=== PATIENT | female | born 1975 | race Asian ===

== ENCOUNTER 2021-06-05 07:42 | Inpatient (IN) | payer MEDICARE ==
[2021-06-05 16:07] LABS: Basophils # (Auto) 0.1 K/mm3 (0.0-0.1); Basophils % (Auto) 1.4 % (0.0-1.8); Eosinophils # (Auto) 0.9 K/mm3 (0.0-0.4); Eosinophils % (Auto) 11.3 % (0.0-4.3); Hematocrit 39.3 % (30.3-42.9); Lymphocytes # (Auto) 2.2 K/mm3 (1.2-5.4); Lymphocytes % (Auto) 27.7 % (13.4-35.0); Mean Corpuscular HGB Conc 33 % (30-34); Mean Corpuscular Volume 82 fl (79-97); Monocytes # (Auto) 0.4 K/mm3 (0.0-0.8); Monocytes % (Auto) 5.1 % (0.0-7.3); Platelet Count 250 K/mm3 (140-440); Red Blood Count 4.82 M/mm3 (3.65-5.03); Red Cell Distribution Width 15.4 % (13.2-15.2)
[2021-06-05 16:33] LABS: Alanine Aminotransferase 13 units/L (7-56); Albumin 4.4 g/dL (3.9-5); BUN/Creatinine Ratio 11; Blood Urea Nitrogen 9 mg/dL (7-17); Calcium 10.6 mg/dL (8.4-10.2); Chol/HDL Ratio 2.94 %; HDL Cholesterol 59 mg/dL (40-59); Hemolysis Index 63; LDL Cholesterol,Direct 110 mg/dL (50-130)
--- NOTE | 2021-06-06 10:13 | History and Physical Report ---
GP History & Physical - History of Present Illness Date of admission: 06/05/21 Date of Examination: 06/06/21 Reason for Admission: Failure of Outpatient Treatment History of Present Illness: Per Admission Note: Still hearing voices telling her to kill herself Elyssa Mae is a 45y/o female patient who was admitted for psychosis. During my evaluation of the patient she has poor insight. She is unable to give a lot of information as to her history or what's presently going on with her. The patient appears to have some developmental delay. She says she was admitted because she "needed a change, a hip pill." She says "I think things are there but not there." She says "will today be a good day for me to go home." She could not tell me any of her past diagnoses or any past medications. She initially says she hears things, then she says she doesn't. 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." She denies any illicit drug use outside of "weed." PAST PSYCHIATRIC HISTORY: Diagnoses: Schizophrenia documented Suicide attempts or Self-harm behavior: Denies Prior psychiatric hospitalizations: yes Substance Abuse history: "Michael" Previous psychiatric medications tried: could not recall Outpatient treatment: Denies PAST MEDICAL HISTORY: None reported or document Family Psychiatric History: None reported or documented SOCIAL HISTORY Marital Status: "" Living Arrangements: "with someone" 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" Access to guns/weapons: denies Education: History of Abuse: denies Legal History: denies REVIEW OF SYSTEMS Constitutional: Negative for weight loss ENT: Negative for stridor Respiratory: Negative for cough or hemoptysis All other systems reviewed and are negative MENTAL STATUS EXAMINATION General Appearance and Behavior: Age appropriate, wearing appropriate clothes, cooperative, good eye contact, calm and cooperative Cooperation: cooperative Psychomotor Behavior: Psychomotor normal Mood: okay Affect and affective range: congruent with stated mood Thought Process: impaired Thought Content: command hallucinations Speech: Normal volume, Regular rate and rhythm Suicidal Ideation: Denies Homicidal Ideation: Denies hallucination: Denies Delusions: None elicited Impulse Control: limited Insight and Judgment: Poor Memory: Poor Attention: Divided Orientation: Alert and oriented Diagnoses: Schizophrenia Treatment Plan Patient admitted for inpatient psychiatric evaluation, medication adjustment and close monitoring The patient's behavior, mood, sleep and appetite will be closely monitored. Patient enrolled in individual and group therapeutic sessions and encouraged to attend. Patient provided with a safe and structured environment. Patient's physical health needs will be addressed by the Hospitalist. Hospitalist Consulted Labs including CBC, CMP, Lipid profile and Hemoglobin A1C levels ordered for baseline reference Social Assessment will be completed and the Destination Specialist will work with patient and family to ensure a suitable and safe disposition Medication adjustment will be made as clinically indicated Start Olanzapine 5mg po daily Start Trazodone 50mg po qhs Usual Wellness Congregation/Preservation: - Start Trazodone 50 mg po QHS & 50 mg po QHS PRN between 10 PM & 2 AM for insomnia - Start Melatonin 5 mg po QHS to promote circadian rhythm The patient agreed on the treatment plan, understood the risk, benefit, alternative treatment, potential consequence of no treatment, and gave informed consent. Estimated days: 7 Post hospital care: primary care provider, psychiatric provider Case staffed with Dr. Weber Legal Status: Voluntary Reaction to Hospitalization: Accepting Medications and Allergies Allergies Allergy/AdvReac Type Severity Reaction Status Date / Time No Known Allergies Allergy Verified 06/05/21 19:48 Home Medications Medication Instructions Recorded Confirmed Last Taken Type lisinopriL [Lisinopril] 10 mg PO BID 06/05/21 06/05/21 Unknown History Results - Results Labs/Vitals: Laboratory Last Values WBC 8.1 K/mm3 (4.5-11.0) 06/05/21 15:51 RBC 4.82 M/mm3 (3.65-5.03) 06/05/21 15:51 Hgb 13.0 gm/dl (10.1-14.3) 06/05/21 15:51 Hct 39.3 % (30.3-42.9) 06/05/21 15:51 MCV 82 fl (79-97) 06/05/21 15:51 MCH 27 pg (28-32) L 06/05/21 15:51 MCHC 33 % (30-34) 06/05/21 15:51 RDW 15.4 % (13.2-15.2) H 06/05/21 15:51 Plt Count 250 K/mm3 (140-440) 06/05/21 15:51 Lymph % (Auto) 27.7 % (13.4-35.0) 06/05/21 15:51 [place] % (Auto) 5.1 % (0.0-7.3) 06/05/21 15:51 Eos % (Auto) 11.3 % (0.0-4.3) H 06/05/21 15:51 Baso % (Auto) 1.4 % (0.0-1.8) 06/05/21 15:51 Lymph # (Auto) 2.2 K/mm3 (1.2-5.4) 06/05/21 15:51 [place] # (Auto) 0.4 K/mm3 (0.0-0.8) 06/05/21 15:51 Eos # (Auto) 0.9 K/mm3 (0.0-0.4) H 06/05/21 15:51 Baso # (Auto) 0.1 K/mm3 (0.0-0.1) 06/05/21 15:51 Seg Neutrophils % 54.5 % (40.0-70.0) 06/05/21 15:51 Seg Neutrophils # 4.4 K/mm3 (1.8-7.7) 06/05/21 15:51 Sodium 136 mmol/L (137-145) L 06/05/21 15:51 Potassium 4.2 mmol/L (3.6-5.0) 06/05/21 15:51 Chloride 100.6 mmol/L (98-107) 06/05/21 15:51 Carbon Dioxide 26 mmol/L (22-30) 06/05/21 15:51 Anion Gap 14 mmol/L 06/05/21 15:51 BUN 9 mg/dL (7-17) 06/05/21 15:51 Creatinine 0.8 mg/dL (0.6-1.2) 06/05/21 15:51 Estimated GFR > 60 ml/min 06/05/21 15:51 BUN/Creatinine Ratio 11 % 06/05/21 15:51 Glucose 95 mg/dL (65-100) 06/05/21 15:51 POC Glucose 91 mg/dL (70-105) 06/06/21 07:20 Hemoglobin A1c 6.1 % (4-6) H 06/05/21 15:51 Calcium 10.6 mg/dL (8.4-10.2) H 06/05/21 15:51 Total Bilirubin 0.20 mg/dL (0.1-1.2) 06/05/21 15:51 AST 20 units/L (5-40) 06/05/21 15:51 ALT 13 units/L (7-56) 06/05/21 15:51 Alkaline Phosphatase 93 units/L (35-129) 06/05/21 15:51 Total Protein 7.3 g/dL (6.3-8.2) 06/05/21 15:51 Albumin 4.4 g/dL (3.9-5) 06/05/21 15:51 Albumin/Globulin Ratio 1.5 % 06/05/21 15:51 Triglycerides 68 mg/dL (2-149) 06/05/21 15:51 Cholesterol 174 mg/dL (50-199) 06/05/21 15:51 LDL Cholesterol Direct 110 mg/dL (50-130) 06/05/21 15:51 HDL Cholesterol 59 mg/dL (40-59) 06/05/21 15:51 Cholesterol/HDL Ratio 2.94 % 06/05/21 15:51 TSH 0.899 mlU/mL (0.270-4.200) 06/05/21 15:51 Last Vital Signs Temp 98.5 F 06/05/21 22:00 Pulse 16 L 06/05/21 22:00 Resp 16 06/05/21 22:00 BP 125/69 06/05/21 22:00 Pulse Ox 100 06/05/21 22:00 Physical Examination - Constitutional Vitals: Vital Signs Temp Pulse Resp BP Pulse Ox 98.5 F 16 L 16 125/69 100 06/05/21 22:00 06/05/21 22:00 06/05/21 22:00 06/05/21 22:00 06/05/21 22:00 Temperature -Last 24 Hours Temperature 98.5 F Temperature 97.4 F Mental Status Exam - Vital signs Last Vital Signs Temp 98.5 F 06/05/21 22:00 Pulse 16 L 06/05/21 22:00 Resp 16 06/05/21 22:00 BP 125/69 06/05/21 22:00 Pulse Ox 100 06/05/21 22:00 Physician Certification - Certification Statement Physician Certification Statement: This is an acknowledgement statement that ELYSSA MAE is a 45 year old F who requires inpatient psychiatric admission for treatment which could reasonably be expected to improve the patient's condition for Estimated period of time patient will need to remain in the hospital: [ ] Plan for post-hospital care: [ ]
--- NOTE | 2021-06-06 10:32 | Consultation ---
History of Present Illness - Reason for Consult Consult date: 06/06/21 Medical Mx - History of Present Illness Shira Mae is a 45y/o female with a history of hypertension and schizophrenia who is admitted to psychiatry unit for psychosis. Patient appears to have very poor insight and unable to provide a good history. Patient currently resting in the daily activity area. Denies any chest pain short of breath or abdominal pain. She has good appetite and sleeping good. Hospitalist service has been consulted for medical management. PAST PSYCHIATRIC HISTORY: Schizophrenia PAST MEDICAL HISTORY: Hypertension Family History: None reported SOCIAL HISTORY: Admits smoking weeds REVIEW OF SYSTEMS Constitutional: no fever, no chills, no weight loss Ears, eyes, nose, mouth and throat: no nasal congestion, no nasal discharge, no sinus pressure, no vision change, no red eye. Neck: No neck pain or rigidity. Cardiovascular: No chest pain, no orthopnea, no palpitations, no leg swelling Respiratory: No shortness of breath, no cough, no congestion, no wheezing Gastrointestinal: no abdominal pain, no nausea, no vomiting Genitourinary : no dysuria, no hematuria Musculoskeletal: no joint swelling or muscle ache Integumentary: no rash, no pruritis Neurological: no parathesias, no numbness, no tingling Endocrine: no cold or heat intolerance, no polyuria or polydipsia Hematologic/Lymphatic: no easy bruising, no easy bleeding, no gland swelling Allergic/Immunologic: no urticaria, no angioedema. Physical exam: GENERAL: well-developed and well-nourished -[place] female sitting in a chair HEENT: Normocephalic. Atraumatic. No conjunctival congestion or icterus. Patient has moist mucous membranes. NECK: Supple. Trachea midline. CHEST/LUNGS: Clear to auscultated bilaterally, breathing nonlabored. No wheezes crackles or rhonchi. HEART/CARDIOVASCULAR: Regular in rate and rhythm. S1 and S2 positive. ABDOMEN: Abdomen is soft, nontender. Patient has normal bowel sounds. SKIN: There is no rash. Warm and dry. NEURO: No focal motor deficit. Follows command. MUSCULOSKELETAL: No joint effusion or tenderness. EXTRIMITY: No edema, no cyanosis or clubbing. PSYCH: Cooperative. Assessment and plan: Schizophrenia with psychosis -Treatment per primary Hypertension, BP appears to be stable, continue home dose of lisinopril DVT prophylaxis, ambulatory --Patient appears to be medically stable. Please call us back for any question or concern Medications and Allergies Allergies Allergy/AdvReac Type Severity Reaction Status Date / Time No Known Allergies Allergy Verified 06/05/21 19:48 Home Medications Medication Instructions Recorded Confirmed Last Taken Type lisinopriL [Lisinopril] 10 mg PO BID 06/05/21 06/05/21 Unknown History Active Meds: Active Medications Lisinopril (Lisinopril 10 Mg Tab) 10 mg PO BID [facility] Olanzapine (Olanzapine 5 Mg Tab) 5 mg PO QDAY [facility] Trazodone HCl (Trazodone 50 Mg Tab) 50 mg PO QHS [facility] Exam - Constitutional Vitals: Temp Pulse Resp BP Pulse Ox 98.5 F 16 L 16 125/69 100 06/05/21 22:00 06/05/21 22:00 06/05/21 22:00 06/05/21 22:00 06/05/21 22:00 Results - Labs CBC & Chem 7: 06/05/21 15:51 06/05/21 15:51 Labs: Abnormal lab results 06/05/21 06/05/21 06/05/21 Range/Units 15:51 15:51 15:51 MCH 27 L (28-32) pg RDW 15.4 H (13.2-15.2) % Eos % (Auto) 11.3 H (0.0-4.3) % Eos # (Auto) 0.9 H (0.0-0.4) K/mm3 Sodium 136 L (137-145) mmol/L Hemoglobin A1c 6.1 H (4-6) % Calcium 10.6 H (8.4-10.2) mg/dL
[2021-06-06] MEDS: LISINOPRIL 10 MG TAB PO SCH ×2 (13:24→21:12)
[2021-06-06] MEDS: traZODone 50 MG TAB PO SCH (21:13)
[2021-06-07] MEDS: LISINOPRIL 10 MG TAB PO SCH ×2 (09:25→21:03)
--- NOTE | 2021-06-07 09:25 | Progress Note ---
Subjective Date of service: 06/07/21 Principal diagnosis: schizophrenia Subjective Comment: The patient was seen today. She is sitting off to herself. She has poor insight and is unable to express herself clearly. The patient replied that she's doing okay when asked. When asking her if she understood why she was admitted into the hospital, she replied "I got bored." The patient says "not really" when asked was she still having hallucinations. I tried to get the patient to explain if she continued to was hear or see things, she replied "no, not really." She denies SI/HI REVIEW OF SYSTEMS Constitutional: Negative for weight loss ENT: Negative for stridor Respiratory: Negative for cough or hemoptysis All other systems reviewed and are negative MENTAL STATUS EXAMINATION General Appearance and Behavior: Age appropriate, wearing appropriate clothes, cooperative, good eye contact, calm and cooperative Cooperation: cooperative Psychomotor Behavior: Psychomotor normal Mood: okay Affect and affective range: congruent with stated mood Thought Process: impaired Thought Content: command hallucinations Speech: Normal volume, Regular rate and rhythm Suicidal Ideation: Denies Homicidal Ideation: Denies hallucination: Auditory Delusions: None elicited Impulse Control: limited Insight and Judgment: Poor Memory: Poor Attention: Divided Orientation: Alert and oriented Diagnoses: Schizophrenia Treatment Plan Patient admitted for inpatient psychiatric evaluation, medication adjustment and close monitoring The patient's behavior, mood, sleep and appetite will be closely monitored. Patient enrolled in individual and group therapeutic sessions and encouraged to attend. Patient provided with a safe and structured environment. Patient's physical health needs will be addressed by the Hospitalist. Hospitalist Consulted Labs including CBC, CMP, Lipid profile and Hemoglobin A1C levels ordered for baseline reference Social Assessment will be completed and the Coach Tour Driver will work with patient and family to ensure a suitable and safe disposition Medication adjustment will be made as clinically indicated Increased Olanzapine 7.5mg po daily Usual Wellness Mormon/Preservation: - Start Trazodone 50 mg po QHS & 50 mg po QHS PRN between 10 PM & 2 AM for insomnia - Start Melatonin 5 mg po QHS to promote circadian rhythm The patient agreed on the treatment plan, understood the risk, benefit, alternative treatment, potential consequence of no treatment, and gave informed consent. Estimated days: 7 Post hospital care: primary care provider, psychiatric provider Case staffed with Dr. Weber Medications and Allergies Allergies Allergy/AdvReac Type Severity Reaction Status Date / Time No Known Allergies Allergy Verified 06/05/21 19:48 Home Medications Medication Instructions Recorded Confirmed Last Taken Type lisinopriL [Lisinopril] 10 mg PO BID 06/05/21 06/05/21 Unknown History Active Meds: Active Medications Lisinopril (Lisinopril 10 Mg Tab) 10 mg PO BID [facility] Last Admin: 06/06/21 21:12 Dose: Not Given Documented by: Olanzapine (Olanzapine 5 Mg Tab) 5 mg PO QDAY [facility] Last Admin: 06/06/21 13:20 Dose: 5 mg Documented by: Trazodone HCl (Trazodone 50 Mg Tab) 50 mg PO QHS [facility] Last Admin: 06/06/21 21:13 Dose: 50 mg Documented by: Results - Results Labs/Vitals: Laboratory Last Values WBC 8.1 K/mm3 (4.5-11.0) 06/05/21 15:51 RBC 4.82 M/mm3 (3.65-5.03) 06/05/21 15:51 Hgb 13.0 gm/dl (10.1-14.3) 06/05/21 15:51 Hct 39.3 % (30.3-42.9) 06/05/21 15:51 MCV 82 fl (79-97) 06/05/21 15:51 MCH 27 pg (28-32) L 06/05/21 15:51 MCHC 33 % (30-34) 06/05/21 15:51 RDW 15.4 % (13.2-15.2) H 06/05/21 15:51 Plt Count 250 K/mm3 (140-440) 06/05/21 15:51 Lymph % (Auto) 27.7 % (13.4-35.0) 06/05/21 15:51 [place] % (Auto) 5.1 % (0.0-7.3) 06/05/21 15:51 Eos % (Auto) 11.3 % (0.0-4.3) H 06/05/21 15:51 Baso % (Auto) 1.4 % (0.0-1.8) 06/05/21 15:51 Lymph # (Auto) 2.2 K/mm3 (1.2-5.4) 06/05/21 15:51 [place] # (Auto) 0.4 K/mm3 (0.0-0.8) 06/05/21 15:51 Eos # (Auto) 0.9 K/mm3 (0.0-0.4) H 06/05/21 15:51 Baso # (Auto) 0.1 K/mm3 (0.0-0.1) 06/05/21 15:51 Seg Neutrophils % 54.5 % (40.0-70.0) 06/05/21 15:51 Seg Neutrophils # 4.4 K/mm3 (1.8-7.7) 06/05/21 15:51 Sodium 136 mmol/L (137-145) L 06/05/21 15:51 Potassium 4.2 mmol/L (3.6-5.0) 06/05/21 15:51 Chloride 100.6 mmol/L (98-107) 06/05/21 15:51 Carbon Dioxide 26 mmol/L (22-30) 06/05/21 15:51 Anion Gap 14 mmol/L 06/05/21 15:51 BUN 9 mg/dL (7-17) 06/05/21 15:51 Creatinine 0.8 mg/dL (0.6-1.2) 06/05/21 15:51 Estimated GFR > 60 ml/min 06/05/21 15:51 BUN/Creatinine Ratio 11 % 06/05/21 15:51 Glucose 95 mg/dL (65-100) 06/05/21 15:51 POC Glucose 91 mg/dL (70-105) 06/06/21 07:20 Hemoglobin A1c 6.1 % (4-6) H 06/05/21 15:51 Calcium 10.6 mg/dL (8.4-10.2) H 06/05/21 15:51 Total Bilirubin 0.20 mg/dL (0.1-1.2) 06/05/21 15:51 AST 20 units/L (5-40) 06/05/21 15:51 ALT 13 units/L (7-56) 06/05/21 15:51 Alkaline Phosphatase 93 units/L (35-129) 06/05/21 15:51 Total Protein 7.3 g/dL (6.3-8.2) 06/05/21 15:51 Albumin 4.4 g/dL (3.9-5) 06/05/21 15:51 Albumin/Globulin Ratio 1.5 % 06/05/21 15:51 Triglycerides 68 mg/dL (2-149) 06/05/21 15:51 Cholesterol 174 mg/dL (50-199) 06/05/21 15:51 LDL Cholesterol Direct 110 mg/dL (50-130) 06/05/21 15:51 HDL Cholesterol 59 mg/dL (40-59) 06/05/21 15:51 Cholesterol/HDL Ratio 2.94 % 06/05/21 15:51 TSH 0.899 mlU/mL (0.270-4.200) 06/05/21 15:51 Last Vital Signs Temp 98.1 F 06/07/21 08:17 Pulse 53 L 06/07/21 08:17 Resp 18 06/07/21 08:17 BP 134/77 06/07/21 08:17 Pulse Ox 100 06/07/21 08:17
[2021-06-07] MEDS: traZODone 50 MG TAB PO SCH (21:03)
[2021-06-08] MEDS: LISINOPRIL 10 MG TAB PO SCH ×2 (09:26→21:05)
--- NOTE | 2021-06-08 12:06 | Progress Note ---
Subjective Date of service: 06/08/21 Principal diagnosis: schizophrenia Subjective Comment: The patient was seen today. She says "I feel great" when asking how she was feeling. She also says she slept "great." The patient denies SI/HI or hallucinations of any kind, although staff has observed her talking to herself. REVIEW OF SYSTEMS Constitutional: Negative for weight loss ENT: Negative for stridor Respiratory: Negative for cough or hemoptysis All other systems reviewed and are negative MENTAL STATUS EXAMINATION General Appearance and Behavior: Age appropriate, wearing appropriate clothes, cooperative, good eye contact, calm and cooperative Cooperation: cooperative Psychomotor Behavior: Psychomotor normal Mood: okay Affect and affective range: congruent with stated mood Thought Process: impaired Thought Content: command hallucinations Speech: Normal volume, Regular rate and rhythm Suicidal Ideation: Denies Homicidal Ideation: Denies hallucination: Auditory Delusions: None elicited Impulse Control: limited Insight and Judgment: Poor Memory: Poor Attention: Divided Orientation: Alert and oriented Diagnoses: Schizophrenia Treatment Plan Patient admitted for inpatient psychiatric evaluation, medication adjustment and close monitoring The patient's behavior, mood, sleep and appetite will be closely monitored. Patient enrolled in individual and group therapeutic sessions and encouraged to attend. Patient provided with a safe and structured environment. Patient's physical health needs will be addressed by the Hospitalist. Hospitalist Consulted Labs including CBC, CMP, Lipid profile and Hemoglobin A1C levels ordered for baseline reference Social Assessment will be completed and the Supervisor Pre Wave will work with patient and family to ensure a suitable and safe disposition Medication adjustment will be made as clinically indicated Increased Olanzapine 10mg po daily Usual Wellness Episcopal/Preservation: - Start Trazodone 50 mg po QHS & 50 mg po QHS PRN between 10 PM & 2 AM for insomnia - Start Melatonin 5 mg po QHS to promote circadian rhythm The patient agreed on the treatment plan, understood the risk, benefit, alte rnative treatment, potential consequence of no treatment, and gave informed consent. Estimated days: 7 Post hospital care: primary care provider, psychiatric provider Case staffed with Dr. Weber Medications and Allergies Allergies Allergy/AdvReac Type Severity Reaction Status Date / Time No Known Allergies Allergy Verified 06/05/21 19:48 Home Medications Medication Instructions Recorded Confirmed Last Taken Type lisinopriL [Lisinopril] 10 mg PO BID 06/05/21 06/05/21 Unknown History Active Meds: Active Medications Lisinopril (Lisinopril 10 Mg Tab) 10 mg PO BID [facility] Last Admin: 06/08/21 09:26 Dose: 10 mg Documented by: Olanzapine (Olanzapine 7.5 Mg Tab) 7.5 mg PO QDAY [facility] Last Admin: 06/08/21 09:26 Dose: 7.5 mg Documented by: Trazodone HCl (Trazodone 50 Mg Tab) 50 mg PO QHS [facility] Last Admin: 06/07/21 21:03 Dose: 50 mg Documented by: Results - Results Labs/Vitals: Laboratory Last Values WBC 8.1 K/mm3 (4.5-11.0) 06/05/21 15:51 RBC 4.82 M/mm3 (3.65-5.03) 06/05/21 15:51 Hgb 13.0 gm/dl (10.1-14.3) 06/05/21 15:51 Hct 39.3 % (30.3-42.9) 06/05/21 15:51 MCV 82 fl (79-97) 06/05/21 15:51 MCH 27 pg (28-32) L 06/05/21 15:51 MCHC 33 % (30-34) 06/05/21 15:51 RDW 15.4 % (13.2-15.2) H 06/05/21 15:51 Plt Count 250 K/mm3 (140-440) 06/05/21 15:51 Lymph % (Auto) 27.7 % (13.4-35.0) 06/05/21 15:51 [place] % (Auto) 5.1 % (0.0-7.3) 06/05/21 15:51 Eos % (Auto) 11.3 % (0.0-4.3) H 06/05/21 15:51 Baso % (Auto) 1.4 % (0.0-1.8) 06/05/21 15:51 Lymph # (Auto) 2.2 K/mm3 (1.2-5.4) 06/05/21 15:51 [place] # (Auto) 0.4 K/mm3 (0.0-0.8) 06/05/21 15:51 Eos # (Auto) 0.9 K/mm3 (0.0-0.4) H 06/05/21 15:51 Baso # (Auto) 0.1 K/mm3 (0.0-0.1) 06/05/21 15:51 Seg Neutrophils % 54.5 % (40.0-70.0) 06/05/21 15:51 Seg Neutrophils # 4.4 K/mm3 (1.8-7.7) 06/05/21 15:51 Sodium 136 mmol/L (137-145) L 06/05/21 15:51 Potassium 4.2 mmol/L (3.6-5.0) 06/05/21 15:51 Chloride 100.6 mmol/L (98-107) 06/05/21 15:51 Carbon Dioxide 26 mmol/L (22-30) 06/05/21 15:51 Anion Gap 14 mmol/L 06/05/21 15:51 BUN 9 mg/dL (7-17) 06/05/21 15:51 Creatinine 0.8 mg/dL (0.6-1.2) 06/05/21 15:51 Estimated GFR > 60 ml/min 06/05/21 15:51 BUN/Creatinine Ratio 11 % 06/05/21 15:51 Glucose 95 mg/dL (65-100) 06/05/21 15:51 POC Glucose 91 mg/dL (70-105) 06/06/21 07:20 Hemoglobin A1c 6.1 % (4-6) H 06/05/21 15:51 Calcium 10.6 mg/dL (8.4-10.2) H 06/05/21 15:51 Total Bilirubin 0.20 mg/dL (0.1-1.2) 06/05/21 15:51 AST 20 units/L (5-40) 06/05/21 15:51 ALT 13 units/L (7-56) 06/05/21 15:51 Alkaline Phosphatase 93 units/L (35-129) 06/05/21 15:51 Total Protein 7.3 g/dL (6.3-8.2) 06/05/21 15:51 Albumin 4.4 g/dL (3.9-5) 06/05/21 15:51 Albumin/Globulin Ratio 1.5 % 06/05/21 15:51 Triglycerides 68 mg/dL (2-149) 06/05/21 15:51 Cholesterol 174 mg/dL (50-199) 06/05/21 15:51 LDL Cholesterol Direct 110 mg/dL (50-130) 06/05/21 15:51 HDL Cholesterol 59 mg/dL (40-59) 06/05/21 15:51 Cholesterol/HDL Ratio 2.94 % 06/05/21 15:51 TSH 0.899 mlU/mL (0.270-4.200) 06/05/21 15:51 Last Vital Signs Temp 98.4 F 06/08/21 08:20 Pulse 62 06/08/21 09:26 Resp 18 06/08/21 08:20 BP 118/75 06/08/21 09:26 Pulse Ox 99 06/08/21 08:20
[2021-06-08] MEDS: traZODone 50 MG TAB PO SCH (21:05)
--- NOTE | 2021-06-09 08:00 | Progress Note ---
Subjective Date of service: 06/09/21 Principal diagnosis: schizophrenia Subjective Comment: 06/07/2021: The patient was seen today. She is sitting off to herself. She has poor insight and is unable to express herself clearly. The patient replied that she's doing okay when asked. When asking her if she understood why she was admitted into the hospital, she replied "I got bored." The patient says "not really" when asked was she still having hallucinations. I tried to get the patient to explain if she continued to was hear or see things, she replied "no, not really." She denies SI/HI 06/08/2021: The patient was seen today. She says "I feel great" when asking how she was feeling. She also says she slept "great." The patient denies SI/HI or hallucinations of any kind, although staff has observed her talking to herself. 06/09/2021:I interviewed the patient this morning. Medical records reviewed and patient's progress was discussed with unit staff. Nursing staff reports that patient " Last evening the patient was calm and cooperative. She is focused on discharge. She denies si/hi/ah/vh. When she is in her room she at times talks loudly to herself and someone else unseen. Her appetite is good and she is m edication compliant. Overnight the patient rested and slept for 1 hour. She was awake the rest of the night. At times being "busy" and making noise. She had taken naps throughout the day." In my interview with the patient this morning, the patient reports mood as "Okay". Appetite is good. Sleep last night was good. The patient denies any current suicidal /homicidal ideation and denies hallucinations. No changed made today. REVIEW OF SYSTEMS Constitutional: Negative for weight loss ENT: Negative for stridor Respiratory: Negative for cough or hemoptysis All other systems reviewed and are negative MENTAL STATUS EXAMINATION General Appearance and Behavior: Age appropriate, wearing appropriate clothes, cooperative, good eye contact, calm and cooperative Cooperation: cooperative Psychomotor Behavior: Psychomotor normal Mood: "okay" Affect and affective range: congruent with stated mood Thought Process: Tangential Thought Content: Poverty Speech: Normal volume, Regular rate and rhythm Suicidal Ideation: Denies Homicidal Ideation: Denies hallucination: Denies Delusions: None elicited Impulse Control: limited Insight and Judgment: Poor Memory: Poor Attention: Divided Orientation: Alert and oriented Diagnoses: Schizophrenia Treatment Plan Patient admitted for inpatient psychiatric evaluation, medication adjustment and close monitoring The patient's behavior, mood, sleep and appetite will be closely monitored. Patient enrolled in individual and group therapeutic sessions and encouraged to attend. Patient provided with a safe and structured environment. Patient's physical health needs will be addressed by the Hospitalist. Hospitalist Consulted Labs including CBC, CMP, Lipid profile and Hemoglobin A1C levels ordered for baseline reference Social Assessment will be completed and the Direct Support Professional will work with patient and family to ensure a suitable and safe disposition Medication adjustment will be made as clinically indicated Continue Olanzapine 10mg po daily Usual Wellness Buddhist/Preservation: - Start Trazodone 50 mg po QHS & 50 mg po QHS PRN between 10 PM & 2 AM for insomnia - Start Melatonin 5 mg po QHS to promote circadian rhythm The patient agreed on the treatment plan, understood the risk, benefit, alternative treatment, potential consequence of no treatment, and gave informed consent. Estimated days: 7 Post hospital care: primary care provider, psychiatric provider Case staffed with Dr. Weber Medications and Allergies Allergies Allergy/AdvReac Type Severity Reaction Status Date / Time No Known Allergies Allergy Verified 06/05/21 19:48 Home Medications Medication Instructions Recorded Confirmed Last Taken Type lisinopriL [Lisinopril] 10 mg PO BID 06/05/21 06/05/21 Unknown History Active Meds: Active Medications Lisinopril (Lisinopril 10 Mg Tab) 10 mg PO BID [facility] Last Admin: 06/08/21 21:05 Dose: 10 mg Documented by: Olanzapine (Olanzapine 10 Mg Tab) 10 mg PO QDAY [facility] Trazodone HCl (Trazodone 50 Mg Tab) 50 mg PO QHS [facility] Last Admin: 06/08/21 21:05 Dose: 50 mg Documented by: Results - Results Labs/Vitals: Laboratory Last Values WBC 8.1 K/mm3 (4.5-11.0) 06/05/21 15:51 RBC 4.82 M/mm3 (3.65-5.03) 06/05/21 15:51 Hgb 13.0 gm/dl (10.1-14.3) 06/05/21 15:51 Hct 39.3 % (30.3-42.9) 06/05/21 15:51 MCV 82 fl (79-97) 06/05/21 15:51 MCH 27 pg (28-32) L 06/05/21 15:51 MCHC 33 % (30-34) 06/05/21 15:51 RDW 15.4 % (13.2-15.2) H 06/05/21 15:51 Plt Count 250 K/mm3 (140-440) 06/05/21 15:51 Lymph % (Auto) 27.7 % (13.4-35.0) 06/05/21 15:51 [place] % (Auto) 5.1 % (0.0-7.3) 06/05/21 15:51 Eos % (Auto) 11.3 % (0.0-4.3) H 06/05/21 15:51 Baso % (Auto) 1.4 % (0.0-1.8) 06/05/21 15:51 Lymph # (Auto) 2.2 K/mm3 (1.2-5.4) 06/05/21 15:51 [place] # (Auto) 0.4 K/mm3 (0.0-0.8) 06/05/21 15:51 Eos # (Auto) 0.9 K/mm3 (0.0-0.4) H 06/05/21 15:51 Baso # (Auto) 0.1 K/mm3 (0.0-0.1) 06/05/21 15:51 Seg Neutrophils % 54.5 % (40.0-70.0) 06/05/21 15:51 Seg Neutrophils # 4.4 K/mm3 (1.8-7.7) 06/05/21 15:51 Sodium 136 mmol/L (137-145) L 06/05/21 15:51 Potassium 4.2 mmol/L (3.6-5.0) 06/05/21 15:51 Chloride 100.6 mmol/L (98-107) 06/05/21 15:51 Carbon Dioxide 26 mmol/L (22-30) 06/05/21 15:51 Anion Gap 14 mmol/L 06/05/21 15:51 BUN 9 mg/dL (7-17) 06/05/21 15:51 Creatinine 0.8 mg/dL (0.6-1.2) 06/05/21 15:51 Estimated GFR > 60 ml/min 06/05/21 15:51 BUN/Creatinine Ratio 11 % 06/05/21 15:51 Glucose 95 mg/dL (65-100) 06/05/21 15:51 POC Glucose 91 mg/dL (70-105) 06/06/21 07:20 Hemoglobin A1c 6.1 % (4-6) H 06/05/21 15:51 Calcium 10.6 mg/dL (8.4-10.2) H 06/05/21 15:51 Total Bilirubin 0.20 mg/dL (0.1-1.2) 06/05/21 15:51 AST 20 units/L (5-40) 06/05/21 15:51 ALT 13 units/L (7-56) 06/05/21 15:51 Alkaline Phosphatase 93 units/L (35-129) 06/05/21 15:51 Total Protein 7.3 g/dL (6.3-8.2) 06/05/21 15:51 Albumin 4.4 g/dL (3.9-5) 06/05/21 15:51 Albumin/Globulin Ratio 1.5 % 06/05/21 15:51 Triglycerides 68 mg/dL (2-149) 06/05/21 15:51 Cholesterol 174 mg/dL (50-199) 06/05/21 15:51 LDL Cholesterol Direct 110 mg/dL (50-130) 06/05/21 15:51 HDL Cholesterol 59 mg/dL (40-59) 06/05/21 15:51 Cholesterol/HDL Ratio 2.94 % 06/05/21 15:51 TSH 0.899 mlU/mL (0.270-4.200) 06/05/21 15:51 Last Vital Signs Temp 98.9 F 06/08/21 19:30 Pulse 86 06/08/21 21:05 Resp 16 06/08/21 19:30 BP 99/64 06/08/21 21:05 Pulse Ox 96 06/08/21 19:30
[2021-06-09] MEDS: LISINOPRIL 10 MG TAB PO SCH ×2 (10:48→21:07)
[2021-06-09] MEDS: traZODone 50 MG TAB PO SCH (21:07)
--- NOTE | 2021-06-10 07:49 | Progress Note ---
Subjective Date of service: 06/10/21 Principal diagnosis: schizophrenia Subjective Comment: 06/07/2021: The patient was seen today. She is sitting off to herself. She has poor insight and is unable to express herself clearly. The patient replied that she's doing okay when asked. When asking her if she understood why she was admitted into the hospital, she replied "I got bored." The patient says "not really" when asked was she still having hallucinations. I tried to get the patient to explain if she continued to was hear or see things, she replied "no, not really." She denies SI/HI 06/08/2021: The patient was seen today. She says "I feel great" when asking how she was feeling. She also says she slept "great." The patient denies SI/HI or hallucinations of any kind, although staff has observed her talking to herself. 06/09/2021:I interviewed the patient this morning. Medical records reviewed and patient's progress was discussed with unit staff. Nursing staff reports that patient " Last evening the patient was calm and cooperative. She is focused on discharge. She denies si/hi/ah/vh. When she is in her room she at times talks loudly to herself and someone else unseen. Her appetite is good and she is me dication compliant. Overnight the patient rested and slept for 1 hour. She was awake the rest of the night. At times being "busy" and making noise. She had taken naps throughout the day." In my interview with the patient this morning, the patient reports mood as "Okay". Appetite is good. Sleep last night was good. The patient denies any current suicidal /homicidal ideation and denies hallucinations. No changed made today. 06/10/2021: The patient was seen in the activity room. She reports doing fine. She reports sleep and appetite as good. She is focused on discharge. The patient denies any current suicidal ideation and denies hallucinations. Per nurse, patient had a quiet night. No changes made today. REVIEW OF SYSTEMS Constitutional: Negative for weight loss ENT: Negative for stridor Respiratory: Negative for cough or hemoptysis All other systems reviewed and are negative MENTAL STATUS EXAMINATION General Appearance and Behavior: Age appropriate, wearing appropriate clothes, cooperative, good eye contact, calm and cooperative Cooperation: cooperative Psychomotor Behavior: Psychomotor normal Mood: "fine" Affect and affective range: congruent with stated mood Thought Process: goal directed Thought Content: Poverty Speech: Normal volume, Regular rate and rhythm Suicidal Ideation: Denies Homicidal Ideation: Denies hallucination: Denies Delusions: None elicited Impulse Control: limited Insight and Judgment: Limited Memory: Poor Attention: Divided Orientation: Alert and oriented Diagnoses: Schizophrenia Treatment Plan Patient admitted for inpatient psychiatric evaluation, medication adjustment and close monitoring The patient's behavior, mood, sleep and appetite will be closely monitored. Patient enrolled in individual and group therapeutic sessions and encouraged to attend. Patient provided with a safe and structured environment. Patient's physical health needs will be addressed by the Hospitalist. Hospitalist Consulted Labs including CBC, CMP, Lipid profile and Hemoglobin A1C levels ordered for baseline reference Social Assessment will be completed and the Manager Night will work with patient and family to ensure a suitable and safe disposition Medication adjustment will be made as clinically indicated No changes Continue Olanzapine 10mg po daily Usual Wellness Confucianism/Preservation: - Start Trazodone 50 mg po QHS & 50 mg po QHS PRN between 10 PM & 2 AM for ins omnia - Start Melatonin 5 mg po QHS to promote circadian rhythm The patient agreed on the treatment plan, understood the risk, benefit, alternative treatment, potential consequence of no treatment, and gave informed consent. Estimated days: 7 Post hospital care: primary care provider, psychiatric provider Case staffed with Dr. Weber Medications and Allergies Allergies Allergy/AdvReac Type Severity Reaction Status Date / Time No Known Allergies Allergy Verified 06/05/21 19:48 Home Medications Medication Instructions Recorded Confirmed Last Taken Type lisinopriL [Lisinopril] 10 mg PO BID 06/05/21 06/05/21 Unknown History Active Meds: Active Medications Lisinopril (Lisinopril 10 Mg Tab) 10 mg PO BID [facility] Last Admin: 06/09/21 21:07 Dose: Not Given Documented by: Olanzapine (Olanzapine 10 Mg Tab) 10 mg PO QDAY [facility] Last Admin: 06/09/21 10:48 Dose: 10 mg Documented by: Trazodone HCl (Trazodone 50 Mg Tab) 50 mg PO QHS [facility] Last Admin: 06/09/21 21:07 Dose: 50 mg Documented by: Results - Results Labs/Vitals: Laboratory Last Values WBC 8.1 K/mm3 (4.5-11.0) 06/05/21 15:51 RBC 4.82 M/mm3 (3.65-5.03) 06/05/21 15:51 Hgb 13.0 gm/dl (10.1-14.3) 06/05/21 15:51 Hct 39.3 % (30.3-42.9) 06/05/21 15:51 MCV 82 fl (79-97) 06/05/21 15:51 MCH 27 pg (28-32) L 06/05/21 15:51 MCHC 33 % (30-34) 06/05/21 15:51 RDW 15.4 % (13.2-15.2) H 06/05/21 15:51 Plt Count 250 K/mm3 (140-440) 06/05/21 15:51 Lymph % (Auto) 27.7 % (13.4-35.0) 06/05/21 15:51 [place] % (Auto) 5.1 % (0.0-7.3) 06/05/21 15:51 Eos % (Auto) 11.3 % (0.0-4.3) H 06/05/21 15:51 Baso % (Auto) 1.4 % (0.0-1.8) 06/05/21 15:51 Lymph # (Auto) 2.2 K/mm3 (1.2-5.4) 06/05/21 15:51 [place] # (Auto) 0.4 K/mm3 (0.0-0.8) 06/05/21 15:51 Eos # (Auto) 0.9 K/mm3 (0.0-0.4) H 06/05/21 15:51 Baso # (Auto) 0.1 K/mm3 (0.0-0.1) 06/05/21 15:51 Seg Neutrophils % 54.5 % (40.0-70.0) 06/05/21 15:51 Seg Neutrophils # 4.4 K/mm3 (1.8-7.7) 06/05/21 15:51 Sodium 136 mmol/L (137-145) L 06/05/21 15:51 Potassium 4.2 mmol/L (3.6-5.0) 06/05/21 15:51 Chloride 100.6 mmol/L (98-107) 06/05/21 15:51 Carbon Dioxide 26 mmol/L (22-30) 06/05/21 15:51 Anion Gap 14 mmol/L 06/05/21 15:51 BUN 9 mg/dL (7-17) 06/05/21 15:51 Creatinine 0.8 mg/dL (0.6-1.2) 06/05/21 15:51 Estimated GFR > 60 ml/min 06/05/21 15:51 BUN/Creatinine Ratio 11 % 06/05/21 15:51 Glucose 95 mg/dL (65-100) 06/05/21 15:51 POC Glucose 91 mg/dL (70-105) 06/06/21 07:20 Hemoglobin A1c 6.1 % (4-6) H 06/05/21 15:51 Calcium 10.6 mg/dL (8.4-10.2) H 06/05/21 15:51 Total Bilirubin 0.20 mg/dL (0.1-1.2) 06/05/21 15:51 AST 20 units/L (5-40) 06/05/21 15:51 ALT 13 units/L (7-56) 06/05/21 15:51 Alkaline Phosphatase 93 units/L (35-129) 06/05/21 15:51 Total Protein 7.3 g/dL (6.3-8.2) 06/05/21 15:51 Albumin 4.4 g/dL (3.9-5) 06/05/21 15:51 Albumin/Globulin Ratio 1.5 % 06/05/21 15:51 Triglycerides 68 mg/dL (2-149) 06/05/21 15:51 Cholesterol 174 mg/dL (50-199) 06/05/21 15:51 LDL Cholesterol Direct 110 mg/dL (50-130) 06/05/21 15:51 HDL Cholesterol 59 mg/dL (40-59) 06/05/21 15:51 Cholesterol/HDL Ratio 2.94 % 06/05/21 15:51 TSH 0.899 mlU/mL (0.270-4.200) 06/05/21 15:51 Last Vital Signs Temp 99.0 F 06/09/21 19:32 Pulse 94 H 06/09/21 21:07 Resp 18 06/09/21 19:32 BP 98/63 06/09/21 21:07 Pulse Ox 99 06/09/21 19:32
[2021-06-10] MEDS: LISINOPRIL 10 MG TAB PO SCH ×2 (09:00→21:24)
[2021-06-10] MEDS: traZODone 50 MG TAB PO SCH (21:22)
[2021-06-11] MEDS: MELATONIN 5 MG TAB PO PRN (02:56)
--- NOTE | 2021-06-11 08:20 | Progress Note ---
Subjective Date of service: 06/11/21 Principal diagnosis: schizophrenia Subjective Comment: 06/07/2021: The patient was seen today. She is sitting off to herself. She has poor insight and is unable to express herself clearly. The patient replied that she's doing okay when asked. When asking her if she understood why she was admitted into the hospital, she replied "I got bored." The patient says "not really" when asked was she still having hallucinations. I tried to get the patient to explain if she continued to was hear or see things, she replied "no, not really." She denies SI/HI 06/08/2021: The patient was seen today. She says "I feel great" when asking how she was feeling. She also says she slept "great." The patient denies SI/HI or hallucinations of any kind, although staff has observed her talking to herself. 06/09/2021:I interviewed the patient this morning. Medical records reviewed and patient's progress was discussed with unit staff. Nursing staff reports that patient " Last evening the patient was calm and cooperative. She is focused on discharge. She denies si/hi/ah/vh. When she is in her room she at times talks loudly to herself and someone else unseen. Her appetite is good and she is me dication compliant. Overnight the patient rested and slept for 1 hour. She was awake the rest of the night. At times being "busy" and making noise. She had taken naps throughout the day." In my interview with the patient this morning, the patient reports mood as "Okay". Appetite is good. Sleep last night was good. The patient denies any current suicidal /homicidal ideation and denies hallucinations. No changed made today. 06/10/2021: The patient was seen in the activity room. She reports doing fine. She reports sleep and appetite as good. She is focused on discharge. The patient denies any current suicidal ideation and denies hallucinations. Per nurse, patient had a quiet night. No changes made today. 06/11/2021: The patient was seen in the activity room eating breakfast. She reports mood as " fine." She states appetite and sleep as good. The patient denies any current suicidal ideation and denies hallucinations. Per nurse, " Pt noted with restless night responding to internal stimulus and braiding her own hair. Melatonin 5 mg given as orders." Treatment plan: Increase Trazodone to 100mg po QHS. REVIEW OF SYSTEMS Constitutional: Negative for weight loss ENT: Negative for stridor Respiratory: Negative for cough or hemoptysis All other systems reviewed and are negative MENTAL STATUS EXAMINATION General Appearance and Behavior: Age appropriate, wearing appropriate clothes, cooperative, good eye contact, calm and cooperative Cooperation: cooperative Psychomotor Behavior: Psychomotor normal Mood: "fine" Affect and affective range: congruent with stated mood Thought Process: goal directed Thought Content: Not SI Speech: Normal volume, Regular rate and rhythm Suicidal Ideation: Denies Homicidal Ideation: Denies hallucination: Denies Delusions: None elicited Impulse Control: limited Insight and Judgment: Limited Memory: Abnormal Attention: Divided Orientation: Alert and oriented Diagnoses: Schizophrenia Treatment Plan Patient admitted for inpatient psychiatric evaluation, medication adjustment and close monitoring The patient's behavior, mood, sleep and appetite will be closely monitored. Patient enrolled in individual and group therapeutic sessions and encouraged to attend. Patient provided with a safe and structured environment. Patient's physical health needs will be addressed by the Hospitalist. Hospitalist Consulted Labs including CBC, CMP, Lipid profile and Hemoglobin A1C levels ordered for b aseline reference Social Assessment will be completed and the Equipment Processer Storage will work with patient and family to ensure a suitable and safe disposition Medication adjustment will be made as clinically indicated No changes Continue Olanzapine 10mg po daily Start Trazodone 100mg po QHS Usual Wellness Congregation/Preservation: - Start Trazodone 50 mg po QHS & 50 mg po QHS PRN between 10 PM & 2 AM for insomnia - Start Melatonin 5 mg po QHS to promote circadian rhythm The patient agreed on the treatment plan, understood the risk, benefit, alternative treatment, potential consequence of no treatment, and gave informed consent. Estimated days: 7 Post hospital care: primary care provider, psychiatric provider Case staffed with Dr. Weber Medications and Allergies Medications and Allergies Allergies Allergy/AdvReac Type Severity Reaction Status Date / Time No Known Allergies Allergy Verified 06/05/21 19:48 Home Medications Medication Instructions Recorded Confirmed Last Taken Type lisinopriL [Lisinopril] 10 mg PO BID 06/05/21 06/05/21 Unknown History Active Meds: Active Medications Lisinopril (Lisinopril 10 Mg Tab) 10 mg PO BID [facility] Last Admin: 06/10/21 21:24 Dose: Not Given Documented by: Melatonin (Melatonin 5 Mg Tab) 5 mg PO QHS PRN PRN Reason: Sleep Last Admin: 06/11/21 02:56 Dose: 5 mg Documented by: Olanzapine (Olanzapine 10 Mg Tab) 10 mg PO QDAY [facility] Last Admin: 06/10/21 09:00 Dose: 10 mg Documented by: Trazodone HCl (Trazodone 50 Mg Tab) 50 mg PO QHS [facility] Last Admin: 06/10/21 21:22 Dose: 50 mg Documented by: Results - Results Labs/Vitals: Laboratory Last Values WBC 8.1 K/mm3 (4.5-11.0) 06/05/21 15:51 RBC 4.82 M/mm3 (3.65-5.03) 06/05/21 15:51 Hgb 13.0 gm/dl (10.1-14.3) 06/05/21 15:51 Hct 39.3 % (30.3-42.9) 06/05/21 15:51 MCV 82 fl (79-97) 06/05/21 15:51 MCH 27 pg (28-32) L 06/05/21 15:51 MCHC 33 % (30-34) 06/05/21 15:51 RDW 15.4 % (13.2-15.2) H 06/05/21 15:51 Plt Count 250 K/mm3 (140-440) 06/05/21 15:51 Lymph % (Auto) 27.7 % (13.4-35.0) 06/05/21 15:51 [place] % (Auto) 5.1 % (0.0-7.3) 06/05/21 15:51 Eos % (Auto) 11.3 % (0.0-4.3) H 06/05/21 15:51 Baso % (Auto) 1.4 % (0.0-1.8) 06/05/21 15:51 Lymph # (Auto) 2.2 K/mm3 (1.2-5.4) 06/05/21 15:51 [place] # (Auto) 0.4 K/mm3 (0.0-0.8) 06/05/21 15:51 Eos # (Auto) 0.9 K/mm3 (0.0-0.4) H 06/05/21 15:51 Baso # (Auto) 0.1 K/mm3 (0.0-0.1) 06/05/21 15:51 Seg Neutrophils % 54.5 % (40.0-70.0) 06/05/21 15:51 Seg Neutrophils # 4.4 K/mm3 (1.8-7.7) 06/05/21 15:51 Sodium 136 mmol/L (137-145) L 06/05/21 15:51 Potassium 4.2 mmol/L (3.6-5.0) 06/05/21 15:51 Chloride 100.6 mmol/L (98-107) 06/05/21 15:51 Carbon Dioxide 26 mmol/L (22-30) 06/05/21 15:51 Anion Gap 14 mmol/L 06/05/21 15:51 BUN 9 mg/dL (7-17) 06/05/21 15:51 Creatinine 0.8 mg/dL (0.6-1.2) 06/05/21 15:51 Estimated GFR > 60 ml/min 06/05/21 15:51 BUN/Creatinine Ratio 11 % 06/05/21 15:51 Glucose 95 mg/dL (65-100) 06/05/21 15:51 POC Glucose 91 mg/dL (70-105) 06/06/21 07:20 Hemoglobin A1c 6.1 % (4-6) H 06/05/21 15:51 Calcium 10.6 mg/dL (8.4-10.2) H 06/05/21 15:51 Total Bilirubin 0.20 mg/dL (0.1-1.2) 06/05/21 15:51 AST 20 units/L (5-40) 06/05/21 15:51 ALT 13 units/L (7-56) 06/05/21 15:51 Alkaline Phosphatase 93 units/L (35-129) 06/05/21 15:51 Total Protein 7.3 g/dL (6.3-8.2) 06/05/21 15:51 Albumin 4.4 g/dL (3.9-5) 06/05/21 15:51 Albumin/Globulin Ratio 1.5 % 06/05/21 15:51 Triglycerides 68 mg/dL (2-149) 06/05/21 15:51 Cholesterol 174 mg/dL (50-199) 06/05/21 15:51 LDL Cholesterol Direct 110 mg/dL (50-130) 06/05/21 15:51 HDL Cholesterol 59 mg/dL (40-59) 06/05/21 15:51 Cholesterol/HDL Ratio 2.94 % 06/05/21 15:51 TSH 0.899 mlU/mL (0.270-4.200) 06/05/21 15:51 Last Vital Signs Temp 97.9 F 06/10/21 22:00 Pulse 77 06/10/21 22:00 Resp 16 06/10/21 22:00 BP 102/66 06/10/21 21:24 Pulse Ox 99 06/10/21 22:00
[2021-06-11] MEDS: LISINOPRIL 10 MG TAB PO SCH ×2 (09:50→20:59)
[2021-06-11] MEDS: traZODone 100 MG TAB PO SCH (21:00)
--- NOTE | 2021-06-12 08:19 | Progress Note ---
Subjective Date of service: 06/12/21 Principal diagnosis: schizophrenia Subjective Comment: 06/07/2021: The patient was seen today. She is sitting off to herself. She has poor insight and is unable to express herself clearly. The patient replied that she's doing okay when asked. When asking her if she understood why she was admitted into the hospital, she replied "I got bored." The patient says "not really" when asked was she still having hallucinations. I tried to get the patient to explain if she continued to was hear or see things, she replied "no, not really." She denies SI/HI 06/08/2021: The patient was seen today. She says "I feel great" when asking how she was feeling. She also says she slept "great." The patient denies SI/HI or hallucinations of any kind, although staff has observed her talking to herself. 06/09/2021:I interviewed the patient this morning. Medical records reviewed and patient's progress was discussed with unit staff. Nursing staff reports that patient " Last evening the patient was calm and cooperative. She is focused on discharge. She denies si/hi/ah/vh. When she is in her room she at times talks loudly to herself and someone else unseen. Her appetite is good and she is me dication compliant. Overnight the patient rested and slept for 1 hour. She was awake the rest of the night. At times being "busy" and making noise. She had taken naps throughout the day." In my interview with the patient this morning, the patient reports mood as "Okay". Appetite is good. Sleep last night was good. The patient denies any current suicidal /homicidal ideation and denies hallucinations. No changed made today. 06/10/2021: The patient was seen in the activity room. She reports doing fine. She reports sleep and appetite as good. She is focused on discharge. The patient denies any current suicidal ideation and denies hallucinations. Per nurse, patient had a quiet night. No changes made today. 06/11/2021: The patient was seen in the activity room eating breakfast. She reports mood as " fine." She states appetite and sleep as good. The patient denies any current suicidal ideation and denies hallucinations. Per nurse, " Pt noted with restless night responding to internal stimulus and braiding her own hair. Melatonin 5 mg given as orders." Treatment plan: Increase Trazodone to 100mg po QHS. 06/12/2021: The patient was seen resting in bed. She reports mood as " fine." She states appetite and sleep is better. The patient denies any current suicidal ideation and denies hallucinations. No complain. Per nurse, the patient had a quiet night. No changed made today. REVIEW OF SYSTEMS Constitutional: Negative for weight loss ENT: Negative for stridor Respiratory: Negative for cough or hemoptysis All other systems reviewed and are negative MENTAL STATUS EXAMINATION General Appearance and Behavior: Age appropriate, wearing appropriate clothes, c ooperative, good eye contact, calm and cooperative Cooperation: cooperative Psychomotor Behavior: Psychomotor normal Mood: "fine" Affect and affective range: congruent with stated mood Thought Process: goal directed Thought Content: Not SI Speech: Normal volume, Regular rate and rhythm Suicidal Ideation: Denies Homicidal Ideation: Denies hallucination: Denies Delusions: None elicited Impulse Control: limited Insight and Judgment: Limited Memory: Abnormal Attention: Divided Orientation: Alert and oriented Diagnoses: Schizophrenia Treatment Plan Patient admitted for inpatient psychiatric evaluation, medication adjustment and close monitoring The patient's behavior, mood, sleep and appetite will be closely monitored. Patient enrolled in individual and group therapeutic sessions and encouraged to attend. Patient provided with a safe and structured environment. Patient's physical health needs will be addressed by the Hospitalist. H ospitalist Consulted Labs including CBC, CMP, Lipid profile and Hemoglobin A1C levels ordered for baseline reference Social Assessment will be completed and the Retail Sales Lead will work with patient and family to ensure a suitable and safe disposition Medication adjustment will be made as clinically indicated No changes today Continue Olanzapine 10mg po daily Start Trazodone 100mg po QHS Usual Wellness Alevism/Preservation: - Start Trazodone 50 mg po QHS & 50 mg po QHS PRN between 10 PM & 2 AM for insomnia - Start Melatonin 5 mg po QHS to promote circadian rhythm The patient agreed on the treatment plan, understood the risk, benefit, alternative treatment, potential consequence of no treatment, and gave informed consent. Estimated days: 7 Post hospital care: primary care provider, psychiatric provider Case staffed with Dr. Weber Medications and Allergies Medications and Allergies Allergies Allergy/AdvReac Type Severity Reaction Status Date / Time No Known Allergies Allergy Verified 07/19/21 19:48 Home Medications Medication Instructions Recorded Confirmed Last Taken Type lisinopriL [Lisinopril] 10 mg PO BID 06/05/21 06/05/21 Unknown History Active Meds: Active Medications Lisinopril (Lisinopril 10 Mg Tab) 10 mg PO BID [facility] Last Admin: 06/11/21 20:59 Dose: 10 mg Documented by: Melatonin (Melatonin 5 Mg Tab) 5 mg PO QHS PRN PRN Reason: Sleep Last Admin: 06/11/21 02:56 Dose: 5 mg Documented by: Olanzapine (Olanzapine 10 Mg Tab) 10 mg PO QDAY [facility] Last Admin: 06/11/21 09:49 Dose: 10 mg Documented by: Trazodone HCl (Trazodone 100 Mg Tab) 100 mg PO QHS [facility] Last Admin: 06/11/21 21:00 Dose: 100 mg Documented by: Results - Results Labs/Vitals: Laboratory Last Values WBC 8.1 K/mm3 (4.5-11.0) 06/05/21 15:51 RBC 4.82 M/mm3 (3.65-5.03) 06/05/21 15:51 Hgb 13.0 gm/dl (10.1-14.3) 06/05/21 15:51 Hct 39.3 % (30.3-42.9) 06/05/21 15:51 MCV 82 fl (79-97) 06/05/21 15:51 MCH 27 pg (28-32) L 06/05/21 15:51 MCHC 33 % (30-34) 06/05/21 15:51 RDW 15.4 % (13.2-15.2) H 06/05/21 15:51 Plt Count 250 K/mm3 (140-440) 06/05/21 15:51 Lymph % (Auto) 27.7 % (13.4-35.0) 06/05/21 15:51 [place] % (Auto) 5.1 % (0.0-7.3) 06/05/21 15:51 Eos % (Auto) 11.3 % (0.0-4.3) H 06/05/21 15:51 Baso % (Auto) 1.4 % (0.0-1.8) 06/05/21 15:51 Lymph # (Auto) 2.2 K/mm3 (1.2-5.4) 06/05/21 15:51 [place] # (Auto) 0.4 K/mm3 (0.0-0.8) 06/05/21 15:51 Eos # (Auto) 0.9 K/mm3 (0.0-0.4) H 06/05/21 15:51 Baso # (Auto) 0.1 K/mm3 (0.0-0.1) 06/05/21 15:51 Seg Neutrophils % 54.5 % (40.0-70.0) 06/05/21 15:51 Seg Neutrophils # 4.4 K/mm3 (1.8-7.7) 06/05/21 15:51 Sodium 136 mmol/L (137-145) L 06/05/21 15:51 Potassium 4.2 mmol/L (3.6-5.0) 06/05/21 15:51 Chloride 100.6 mmol/L (98-107) 06/05/21 15:51 Carbon Dioxide 26 mmol/L (22-30) 06/05/21 15:51 Anion Gap 14 mmol/L 06/05/21 15:51 BUN 9 mg/dL (7-17) 06/05/21 15:51 Creatinine 0.8 mg/dL (0.6-1.2) 06/05/21 15:51 Estimated GFR > 60 ml/min 06/05/21 15:51 BUN/Creatinine Ratio 11 % 06/05/21 15:51 Glucose 95 mg/dL (65-100) 06/05/21 15:51 POC Glucose 91 mg/dL (70-105) 06/06/21 07:20 Hemoglobin A1c 6.1 % (4-6) H 06/05/21 15:51 Calcium 10.6 mg/dL (8.4-10.2) H 06/05/21 15:51 Total Bilirubin 0.20 mg/dL (0.1-1.2) 06/05/21 15:51 AST 20 units/L (5-40) 06/05/21 15:51 ALT 13 units/L (7-56) 06/05/21 15:51 Alkaline Phosphatase 93 units/L (35-129) 06/05/21 15:51 Total Protein 7.3 g/dL (6.3-8.2) 06/05/21 15:51 Albumin 4.4 g/dL (3.9-5) 06/05/21 15:51 Albumin/Globulin Ratio 1.5 % 06/05/21 15:51 Triglycerides 68 mg/dL (2-149) 06/05/21 15:51 Cholesterol 174 mg/dL (50-199) 06/05/21 15:51 LDL Cholesterol Direct 110 mg/dL (50-130) 06/05/21 15:51 HDL Cholesterol 59 mg/dL (40-59) 06/05/21 15:51 Cholesterol/HDL Ratio 2.94 % 06/05/21 15:51 TSH 0.899 mlU/mL (0.270-4.200) 06/05/21 15:51 Last Vital Signs Temp 98.9 F 06/11/21 19:37 Pulse 71 06/11/21 20:59 Resp 16 06/11/21 19:37 BP 104/63 06/11/21 20:59 Pulse Ox 100 06/11/21 19:37
[2021-06-12] MEDS: LISINOPRIL 10 MG TAB PO SCH ×2 (10:15→21:04)
[2021-06-12] MEDS: MELATONIN 5 MG TAB PO PRN (21:04)
[2021-06-12] MEDS: traZODone 100 MG TAB PO SCH (21:04)
--- NOTE | 2021-06-13 08:44 | Progress Note ---
Subjective Date of service: 06/13/21 Principal diagnosis: schizophrenia Subjective Comment: 06/07/2021: The patient was seen today. She is sitting off to herself. She has poor insight and is unable to express herself clearly. The patient replied that she's doing okay when asked. When asking her if she understood why she was admitted into the hospital, she replied "I got bored." The patient says "not really" when asked was she still having hallucinations. I tried to get the patient to explain if she continued to was hear or see things, she replied "no, not really." She denies SI/HI 06/08/2021: The patient was seen today. She says "I feel great" when asking how she was feeling. She also says she slept "great." The patient denies SI/HI or hallucinations of any kind, although staff has observed her talking to herself. 06/09/2021:I interviewed the patient this morning. Medical records reviewed and patient's progress was discussed with unit staff. Nursing staff reports that patient " Last evening the patient was calm and cooperative. She is focused on discharge. She denies si/hi/ah/vh. When she is in her room she at times talks loudly to herself and someone else unseen. Her appetite is good and she is me dication compliant. Overnight the patient rested and slept for 1 hour. She was awake the rest of the night. At times being "busy" and making noise. She had taken naps throughout the day." In my interview with the patient this morning, the patient reports mood as "Okay". Appetite is good. Sleep last night was good. The patient denies any current suicidal /homicidal ideation and denies hallucinations. No changed made today. 06/10/2021: The patient was seen in the activity room. She reports doing fine. She reports sleep and appetite as good. She is focused on discharge. The patient denies any current suicidal ideation and denies hallucinations. Per nurse, patient had a quiet night. No changes made today. 06/11/2021: The patient was seen in the activity room eating breakfast. She reports mood as " fine." She states appetite and sleep as good. The patient denies any current suicidal ideation and denies hallucinations. Per nurse, " Pt noted with restless night responding to internal stimulus and braiding her own hair. Melatonin 5 mg given as orders." Treatment plan: Increase Trazodone to 100mg po QHS. 06/12/2021: The patient was seen resting in bed. She reports mood as " fine." She states appetite and sleep is better. The patient denies any current suicidal ideation and denies hallucinations. No complain. Per nurse, the patient had a quiet night. No changed made today. 06/13/2021: The patient was seen in the activity room eating breakfast. She states appetite and sleep is better. The patient denies any current suicidal ideation and denies hallucinations. No complain. Per nurse, " pt is alert and oriented x3, calm and cooperative, able to make needs known, good appetite, m edication compliant, denies si/hi, denies a/v/h, but was observed responding to internal stimuli, she was talking to herself most of the night, slept for approximately 2hrs, no distress noted," Changes made today: Start Olanzapine 10mg po QHS, Start Remeron 7.5mg po QHS. REVIEW OF SYSTEMS Constitutional: Negative for weight loss ENT: Negative for stridor Respiratory: Negative for cough or hemoptysis All other systems reviewed and are negative MENTAL STATUS EXAMINATION General Appearance and Behavior: Age appropriate, wearing appropriate clothes, cooperative, good eye contact, calm and cooperative Cooperation: cooperative Psychomotor Behavior: Psychomotor normal Mood: "good" Affect and affective range: congruent with stated mood Thought Process: goal directed Thought Content: Not SI Speech: Normal volume, Regular rate and rhythm Suicidal Ideation: Denies Homicidal Ideation: Denies hallucination: Denies Delusions: None elicited Impulse Control: limited Insight and Judgment: Limited Memory: Abnormal Attention: Divided Orientation: Alert and oriented Diagnoses: Schizophrenia Treatment Plan Patient admitted for inpatient psychiatric evaluation, medication adjustment and close monitoring The patient's behavior, mood, sleep and appetite will be closely monitored. Patient enrolled in individual and group therapeutic sessions and encouraged to attend. Patient provided with a safe and structured environment. Patient's physical health needs will be addressed by the Hospitalist. Hospitalist Consulted Labs including CBC, CMP, Lipid profile and Hemoglobin A1C levels ordered for baseline reference Social Assessment will be completed and the Information Technology Director will work with p atient and family to ensure a suitable and safe disposition Medication adjustment will be made as clinically indicated No changes today Start Olanzapine 10mg po QHS Start Remeron 7.5mg po QHS Usual Wellness Protestant/Preservation: - Start Trazodone 50 mg po QHS & 50 mg po QHS PRN between 10 PM & 2 AM for insomnia - Start Melatonin 5 mg po QHS to promote circadian rhythm The patient agreed on the treatment plan, understood the risk, benefit, alternative treatment, potential consequence of no treatment, and gave informed consent. Estimated days: 7 Post hospital care: primary care provider, psychiatric provider Case staffed with Dr. Weber Medications and Allergies Medications and Allergies Allergies Allergy/AdvReac Type Severity Reaction Status Date / Time No Known Allergies Allergy Verified 06/05/21 19:48 Home Medications Medication Instructions Recorded Confirmed Last Taken Type lisinopriL [Lisinopril] 10 mg PO BID 06/05/21 06/05/21 Unknown History Active Meds: Active Medications Lisinopril (Lisinopril 10 Mg Tab) 10 mg PO BID [facility] Last Admin: 06/12/21 21:04 Dose: Not Given Documented by: Melatonin (Melatonin 5 Mg Tab) 5 mg PO QHS PRN PRN Reason: Sleep Last Admin: 06/12/21 21:04 Dose: 5 mg Documented by: Mirtazapine (Mirtazapine 15 Mg Tab) 15 mg PO QHS [facility] Olanzapine (Olanzapine 10 Mg Tab) 10 mg PO QDAY [facility] Olanzapine (Olanzapine 10 Mg Tab) 10 mg PO QHS [facility] Results - Results Labs/Vitals: Laboratory Last Values WBC 8.1 K/mm3 (4.5-11.0) 06/05/21 15:51 RBC 4.82 M/mm3 (3.65-5.03) 06/05/21 15:51 Hgb 13.0 gm/dl (10.1-14.3) 06/05/21 15:51 Hct 39.3 % (30.3-42.9) 06/05/21 15:51 MCV 82 fl (79-97) 06/05/21 15:51 MCH 27 pg (28-32) L 06/05/21 15:51 MCHC 33 % (30-34) 06/05/21 15:51 RDW 15.4 % (13.2-15.2) H 06/05/21 15:51 Plt Count 250 K/mm3 (140-440) 06/05/21 15:51 Lymph % (Auto) 27.7 % (13.4-35.0) 06/05/21 15:51 [place] % (Auto) 5.1 % (0.0-7.3) 06/05/21 15:51 Eos % (Auto) 11.3 % (0.0-4.3) H 06/05/21 15:51 Baso % (Auto) 1.4 % (0.0-1.8) 06/05/21 15:51 Lymph # (Auto) 2.2 K/mm3 (1.2-5.4) 06/05/21 15:51 [place] # (Auto) 0.4 K/mm3 (0.0-0.8) 06/05/21 15:51 Eos # (Auto) 0.9 K/mm3 (0.0-0.4) H 06/05/21 15:51 Baso # (Auto) 0.1 K/mm3 (0.0-0.1) 06/05/21 15:51 Seg Neutrophils % 54.5 % (40.0-70.0) 06/05/21 15:51 Seg Neutrophils # 4.4 K/mm3 (1.8-7.7) 06/05/21 15:51 Sodium 136 mmol/L (137-145) L 06/05/21 15:51 Potassium 4.2 mmol/L (3.6-5.0) 06/05/21 15:51 Chloride 100.6 mmol/L (98-107) 06/05/21 15:51 Carbon Dioxide 26 mmol/L (22-30) 06/05/21 15:51 Anion Gap 14 mmol/L 06/05/21 15:51 BUN 9 mg/dL (7-17) 06/05/21 15:51 Creatinine 0.8 mg/dL (0.6-1.2) 06/05/21 15:51 Estimated GFR > 60 ml/min 06/05/21 15:51 BUN/Creatinine Ratio 11 % 06/05/21 15:51 Glucose 95 mg/dL (65-100) 06/05/21 15:51 POC Glucose 91 mg/dL (70-105) 06/06/21 07:20 Hemoglobin A1c 6.1 % (4-6) H 06/05/21 15:51 Calcium 10.6 mg/dL (8.4-10.2) H 06/05/21 15:51 Total Bilirubin 0.20 mg/dL (0.1-1.2) 06/05/21 15:51 AST 20 units/L (5-40) 06/05/21 15:51 ALT 13 units/L (7-56) 06/05/21 15:51 Alkaline Phosphatase 93 units/L (35-129) 06/05/21 15:51 Total Protein 7.3 g/dL (6.3-8.2) 06/05/21 15:51 Albumin 4.4 g/dL (3.9-5) 06/05/21 15:51 Albumin/Globulin Ratio 1.5 % 06/05/21 15:51 Triglycerides 68 mg/dL (2-149) 06/05/21 15:51 Cholesterol 174 mg/dL (50-199) 06/05/21 15:51 LDL Cholesterol Direct 110 mg/dL (50-130) 06/05/21 15:51 HDL Cholesterol 59 mg/dL (40-59) 06/05/21 15:51 Cholesterol/HDL Ratio 2.94 % 06/05/21 15:51 TSH 0.899 mlU/mL (0.270-4.200) 06/05/21 15:51 Last Vital Signs Temp 98.9 F 06/12/21 19:32 Pulse 78 06/12/21 21:04 Resp 18 06/12/21 19:32 BP 99/71 06/12/21 21:04 Pulse Ox 95 06/12/21 19:32
[2021-06-13] MEDS: LISINOPRIL 10 MG TAB PO SCH ×2 (10:59→21:01)
[2021-06-13] MEDS ORDERED: MIRTAZAPINE 15 MG TAB PO SCH (22:00)
[2021-06-14] MEDS: MELATONIN 5 MG TAB PO PRN ×2 (02:20→21:11)
--- NOTE | 2021-06-14 07:54 | Progress Note ---
Subjective Date of service: 06/14/21 Principal diagnosis: schizophrenia Subjective Comment: 06/07/2021: The patient was seen today. She is sitting off to herself. She has poor insight and is unable to express herself clearly. The patient replied that she's doing okay when asked. When asking her if she understood why she was admitted into the hospital, she replied "I got bored." The patient says "not really" when asked was she still having hallucinations. I tried to get the patient to explain if she continued to was hear or see things, she replied "no, not really." She denies SI/HI 06/08/2021: The patient was seen today. She says "I feel great" when asking how she was feeling. She also says she slept "great." The patient denies SI/HI or hallucinations of any kind, although staff has observed her talking to herself. 06/09/2021:I interviewed the patient this morning. Medical records reviewed and patient's progress was discussed with unit staff. Nursing staff reports that patient " Last evening the patient was calm and cooperative. She is focused on discharge. She denies si/hi/ah/vh. When she is in her room she at times talks loudly to herself and someone else unseen. Her appetite is good and she is me dication compliant. Overnight the patient rested and slept for 1 hour. She was awake the rest of the night. At times being "busy" and making noise. She had taken naps throughout the day." In my interview with the patient this morning, the patient reports mood as "Okay". Appetite is good. Sleep last night was good. The patient denies any current suicidal /homicidal ideation and denies hallucinations. No changed made today. 06/10/2021: The patient was seen in the activity room. She reports doing fine. She reports sleep and appetite as good. She is focused on discharge. The patient denies any current suicidal ideation and denies hallucinations. Per nurse, patient had a quiet night. No changes made today. 06/11/2021: The patient was seen in the activity room eating breakfast. She reports mood as " fine." She states appetite and sleep as good. The patient denies any current suicidal ideation and denies hallucinations. Per nurse, " Pt noted with restless night responding to internal stimulus and braiding her own hair. Melatonin 5 mg given as orders." Treatment plan: Increase Trazodone to 100mg po QHS. 06/12/2021: The patient was seen resting in bed. She reports mood as " fine." She states appetite and sleep is better. The patient denies any current suicidal ideation and denies hallucinations. No complain. Per nurse, the patient had a quiet night. No changed made today. 06/13/2021: The patient was seen in the activity room eating breakfast. She states appetite and sleep is better. The patient denies any current suicidal ideation and denies hallucinations. No complain. Per nurse, " pt is alert and oriented x3, calm and cooperative, able to make needs known, good appetite, m edication compliant, denies si/hi, denies a/v/h, but was observed responding to internal stimuli, she was talking to herself most of the night, slept for approximately 2hrs, no distress noted," Changes made today: Start Olanzapine 10mg po QHS, Start Remeron 7.5mg po QHS. 06/14/2021: The patient was seen in the activity room eating breakfast. She reports doing well. States mood as "Okay" . she denies any current suicidal/homicidal ideation and denies hallucinations. Per nurse, " Pt reports she is unable to sleep and requests sleep aid. Melatonin 5 mg given as ordered." No changes made today. REVIEW OF SYSTEMS Constitutional: Negative for weight loss ENT: Negative for stridor Respiratory: Negative for cough or hemoptysis All other systems reviewed and are negative MENTAL STATUS EXAMINATION General Appearance and Behavior: Age appropriate, wearing appropriate clothes, cooperative, good eye contact, calm and cooperative Cooperation: cooperative Psychomotor Behavior: Psychomotor normal Mood: "good" Affect and affective range: congruent with stated mood Thought Process: goal directed Thought Content: Not SI Speech: Normal volume, Regular rate and rhythm Suicidal Ideation: Denies Homicidal Ideation: Denies hallucination: Denies Delusions: None elicited Impulse Control: limited Insight and Judgment: Limited Memory: Abnormal Attention: Divided Orientation: Alert and oriented Diagnoses: Schizophrenia Treatment Plan Patient admitted for inpatient psychiatric evaluation, medication adjustment and close monitoring The patient's behavior, mood, sleep and appetite will be closely monitored. Patient enrolled in individual and group therapeutic sessions and encouraged to attend. Patient provided with a safe and structured environment. Patient's physical health needs will be addressed by the Hospitalist. Hospitalist Consulted Labs including CBC, CMP, Lipid profile and Hemoglobin A1C levels ordered for baseline reference Social Assessment will be completed and the P[employer] Ammonia will work with patient and family to ensure a suitable and safe disposition Medication adjustment will be made as clinically indicated No changes today Continue Olanzapine 10mg po QHS start Remeron 15mg po QHS Usual Wellness Restorationism/Preservation: - Start Trazodone 50 mg po QHS & 50 mg po QHS PRN between 10 PM & 2 AM for insomnia - Start Melatonin 5 mg po QHS to promote circadian rhythm The patient agreed on the treatment plan, understood the risk, benefit, alternative treatment, potential consequence of no treatment, and gave informed consent. Estimated days: 7 Post hospital care: primary care provider, psychiatric provider Case staffed with Dr. Weber Medications and Allergies Medications and Allergies Allergies Medications and Allergies Allergies Allergy/AdvReac Type Severity Reaction Status Date / Time No Known Allergies Allergy Verified 06/05/21 19:48 Home Medications Medication Instructions Recorded Confirmed Last Taken Type lisinopriL [Lisinopril] 10 mg PO BID 06/05/21 06/05/21 Unknown History Active Meds: Active Medications Lisinopril (Lisinopril 10 Mg Tab) 10 mg PO BID [facility] Last Admin: 06/13/21 21:01 Dose: 10 mg Documented by: Melatonin (Melatonin 5 Mg Tab) 5 mg PO QHS PRN PRN Reason: Sleep Last Admin: 06/14/21 02:20 Dose: 5 mg Documented by: Mirtazapine (Mirtazapine 15 Mg Tab) 15 mg PO QHS [facility] Last Admin: 06/13/21 21:02 Dose: 15 mg Documented by: Olanzapine (Olanzapine 10 Mg Tab) 10 mg PO QHS [facility] Last Admin: 06/13/21 21:02 Dose: 10 mg Documented by: Results - Results Labs/Vitals: Laboratory Last Values WBC 8.1 K/mm3 (4.5-11.0) 06/05/21 15:51 RBC 4.82 M/mm3 (3.65-5.03) 06/05/21 15:51 Hgb 13.0 gm/dl (10.1-14.3) 06/05/21 15:51 Hct 39.3 % (30.3-42.9) 06/05/21 15:51 MCV 82 fl (79-97) 06/05/21 15:51 MCH 27 pg (28-32) L 06/05/21 15:51 MCHC 33 % (30-34) 06/05/21 15:51 RDW 15.4 % (13.2-15.2) H 06/05/21 15:51 Plt Count 250 K/mm3 (140-440) 06/05/21 15:51 Lymph % (Auto) 27.7 % (13.4-35.0) 06/05/21 15:51 [place] % (Auto) 5.1 % (0.0-7.3) 06/05/21 15:51 Eos % (Auto) 11.3 % (0.0-4.3) H 06/05/21 15:51 Baso % (Auto) 1.4 % (0.0-1.8) 06/05/21 15:51 Lymph # (Auto) 2.2 K/mm3 (1.2-5.4) 06/05/21 15:51 [place] # (Auto) 0.4 K/mm3 (0.0-0.8) 06/05/21 15:51 Eos # (Auto) 0.9 K/mm3 (0.0-0.4) H 06/05/21 15:51 Baso # (Auto) 0.1 K/mm3 (0.0-0.1) 06/05/21 15:51 Seg Neutrophils % 54.5 % (40.0-70.0) 06/05/21 15:51 Seg Neutrophils # 4.4 K/mm3 (1.8-7.7) 06/05/21 15:51 Sodium 136 mmol/L (137-145) L 06/05/21 15:51 Potassium 4.2 mmol/L (3.6-5.0) 06/05/21 15:51 Chloride 100.6 mmol/L (98-107) 06/05/21 15:51 Carbon Dioxide 26 mmol/L (22-30) 06/05/21 15:51 Anion Gap 14 mmol/L 06/05/21 15:51 BUN 9 mg/dL (7-17) 06/05/21 15:51 Creatinine 0.8 mg/dL (0.6-1.2) 06/05/21 15:51 Estimated GFR > 60 ml/min 06/05/21 15:51 BUN/Creatinine Ratio 11 % 06/05/21 15:51 Glucose 95 mg/dL (65-100) 06/05/21 15:51 POC Glucose 91 mg/dL (70-105) 06/06/21 07:20 Hemoglobin A1c 6.1 % (4-6) H 06/05/21 15:51 Calcium 10.6 mg/dL (8.4-10.2) H 06/05/21 15:51 Total Bilirubin 0.20 mg/dL (0.1-1.2) 06/05/21 15:51 AST 20 units/L (5-40) 06/05/21 15:51 ALT 13 units/L (7-56) 06/05/21 15:51 Alkaline Phosphatase 93 units/L (35-129) 06/05/21 15:51 Total Protein 7.3 g/dL (6.3-8.2) 06/05/21 15:51 Albumin 4.4 g/dL (3.9-5) 06/05/21 15:51 Albumin/Globulin Ratio 1.5 % 06/05/21 15:51 Triglycerides 68 mg/dL (2-149) 06/05/21 15:51 Cholesterol 174 mg/dL (50-199) 06/05/21 15:51 LDL Cholesterol Direct 110 mg/dL (50-130) 06/05/21 15:51 HDL Cholesterol 59 mg/dL (40-59) 06/05/21 15:51 Cholesterol/HDL Ratio 2.94 % 06/05/21 15:51 TSH 0.899 mlU/mL (0.270-4.200) 06/05/21 15:51 Last Vital Signs Temp 99.1 F 06/13/21 19:02 Pulse 100 H 06/13/21 21:01 Resp 16 06/13/21 19:02 BP 118/79 06/13/21 21:01 Pulse Ox 98 06/13/21 19:02
[2021-06-14] MEDS: LISINOPRIL 10 MG TAB PO SCH ×2 (09:07→21:10)
[2021-06-14] MEDS ORDERED: MIRTAZAPINE 15 MG TAB PO SCH (22:00)
--- NOTE | 2021-06-15 07:53 | Discharge Summary ---
Providers - Providers Date of Admission: 06/05/21 12:39 Date of discharge: 06/15/21 Attending physician: RICO [place] MD 06/05/21 10:24 Consult to Physician [CONS] Routine Comment: Consulting Provider: TRUMAN PERKINS Physician Instructions: Reason For Exam: manage medical conditions Primary care physician: GATE PERSON Hospitalization Reason for admission: commanding auditory hallucinations/ non complianrt with medications Condition: Stable Hospital course: The patient was provided inpatient psychiatric treatment with safe and supportive environment, group/individual therapy, psychiatric medication, medication adjustment, adverse effect monitor, medical evaluation, medical treatment, social service assessment, social support meeting, placement assessment and psycho-education. The patients mood, cognition, behavior, motivation, compliance to treatment and appreciation on family/social support are improved and stabilized. At the time of discharge, the patient had no suicidal ideas, no homicidal ideas, no aggressive thoughts, no endangering behavior and no debilitating adverse effects. The patient agreed on the treatment plan, understood the risk, benefit, alternative treatment, potential consequence of no treatment, and gave informed consent. Progress Notes: 06/07/2021: The patient was seen today. She is sitting off to herself. She has poor insight and is unable to express herself clearly. The patient replied that she's doing okay when asked. When asking her if she understood why she was admitted into the hospital, she replied "I got bored." The patient says "not really" when asked was she still having hallucinations. I tried to get the patient to explain if she continued to was hear or see things, she replied "no, not really." She denies SI/HI 06/08/2021: The patient was seen today. She says "I feel great" when asking how she was feeling. She also says she slept "great." The patient denies SI/HI or hallucinations of any kind, although staff has observed her talking to herself. 06/09/2021:I interviewed the patient this morning. Medical records reviewed and patient's progress was discussed with unit staff. Nursing staff reports that patient " Last evening the patient was calm and cooperative. She is focused on discharge. She denies si/hi/ah/vh. When she is in her room she at times talks loudly to herself and someone else unseen. Her appetite is good and she is medication compliant. Overnight the patient rested and slept for 1 hour. She was awake the rest of the night. At times being "busy" and making noise. She had taken naps throughout the day." In my interview with the patient this morning, the patient reports mood as "Okay". Appetite is good. Sleep last night was good. The patient denies any current suicidal /homicidal ideation and denies hallucinations. No changed made today. 06/10/2021: The patient was seen in the activity room. She reports doing fine. She reports sleep and appetite as good. She is focused on discharge. The patient denies any current suicidal ideation and denies hallucinations. Per nurse, patient had a quiet night. No changes made today. 06/11/2021: The patient was seen in the activity room eating breakfast. She reports mood as " fine." She states appetite and sleep as good. The patient denies any current suicidal ideation and denies hallucinations. Per nurse, " Pt noted with restless night responding to internal stimulus and braiding her own hair. Melatonin 5 mg given as orders." Treatment plan: Increase Trazodone to 100mg po QHS. 06/12/2021: The patient was seen resting in bed. She reports mood as " fine." She states appetite and sleep is better. The patient denies any current suicidal ideation and denies hallucinations. No complain. Per nurse, the patient had a quiet night. No changed made today. 06/13/2021: The patient was seen in the activity room eating breakfast. She states appetite and sleep is better. The patient denies any current suicidal ideation and denies hallucinations. No complain. Per nurse, " pt is alert and oriented x3, calm and cooperative, able to make needs known, good appetite, medication compliant, denies si/hi, denies a/v/h, but was observed responding to internal stimuli, she was talking to herself most of the night, slept for approximately 2hrs, no distress noted," Changes made today: Start Olanzapine 10mg po QHS, Start Remeron 7.5mg po QHS. 06/14/2021: The patient was seen in the activity room eating breakfast. She reports doing well. States mood as "Okay" . she denies any current suicidal/homicidal ideation and denies hallucinations. Per nurse, " Pt reports she is unable to sleep and requests sleep aid. Melatonin 5 mg given as ordered." No changes made today. Disposition: DC-01 TO HOME OR SELFCARE Time spent for discharge: 30mins Allergies/Adverse Reactions: Allergies No Known Allergies Allergy (Verified 06/05/21 19:48) Vital Signs: Last Vital Signs Temp 99.1 F 06/14/21 19:43 Pulse 87 06/14/21 21:10 Resp 18 06/14/21 19:43 BP 111/69 06/14/21 21:10 Pulse Ox 96 06/14/21 19:43 Last Lab: Laboratory Last Values WBC 8.1 K/mm3 (4.5-11.0) 06/05/21 15:51 RBC 4.82 M/mm3 (3.65-5.03) 06/05/21 15:51 Hgb 13.0 gm/dl (10.1-14.3) 06/05/21 15:51 Hct 39.3 % (30.3-42.9) 06/05/21 15:51 MCV 82 fl (79-97) 06/05/21 15:51 MCH 27 pg (28-32) L 06/05/21 15:51 MCHC 33 % (30-34) 06/05/21 15:51 RDW 15.4 % (13.2-15.2) H 06/05/21 15:51 Plt Count 250 K/mm3 (140-440) 06/05/21 15:51 Lymph % (Auto) 27.7 % (13.4-35.0) 06/05/21 15:51 [place] % (Auto) 5.1 % (0.0-7.3) 06/05/21 15:51 Eos % (Auto) 11.3 % (0.0-4.3) H 06/05/21 15:51 Baso % (Auto) 1.4 % (0.0-1.8) 06/05/21 15:51 Lymph # (Auto) 2.2 K/mm3 (1.2-5.4) 06/05/21 15:51 [place] # (Auto) 0.4 K/mm3 (0.0-0.8) 06/05/21 15:51 Eos # (Auto) 0.9 K/mm3 (0.0-0.4) H 06/05/21 15:51 Baso # (Auto) 0.1 K/mm3 (0.0-0.1) 06/05/21 15:51 Seg Neutrophils % 54.5 % (40.0-70.0) 06/05/21 15:51 Seg Neutrophils # 4.4 K/mm3 (1.8-7.7) 06/05/21 15:51 Sodium 136 mmol/L (137-145) L 06/05/21 15:51 Potassium 4.2 mmol/L (3.6-5.0) 06/05/21 15:51 Chloride 100.6 mmol/L (98-107) 06/05/21 15:51 Carbon Dioxide 26 mmol/L (22-30) 06/05/21 15:51 Anion Gap 14 mmol/L 06/05/21 15:51 BUN 9 mg/dL (7-17) 06/05/21 15:51 Creatinine 0.8 mg/dL (0.6-1.2) 06/05/21 15:51 Estimated GFR > 60 ml/min 06/05/21 15:51 BUN/Creatinine Ratio 11 % 06/05/21 15:51 Glucose 95 mg/dL (65-100) 06/05/21 15:51 POC Glucose 91 mg/dL (70-105) 06/06/21 07:20 Hemoglobin A1c 6.1 % (4-6) H 06/05/21 15:51 Calcium 10.6 mg/dL (8.4-10.2) H 06/05/21 15:51 Total Bilirubin 0.20 mg/dL (0.1-1.2) 06/05/21 15:51 AST 20 units/L (5-40) 06/05/21 15:51 ALT 13 units/L (7-56) 06/05/21 15:51 Alkaline Phosphatase 93 units/L (35-129) 06/05/21 15:51 Total Protein 7.3 g/dL (6.3-8.2) 06/05/21 15:51 Albumin 4.4 g/dL (3.9-5) 06/05/21 15:51 Albumin/Globulin Ratio 1.5 % 06/05/21 15:51 Triglycerides 68 mg/dL (2-149) 06/05/21 15:51 Cholesterol 174 mg/dL (50-199) 06/05/21 15:51 LDL Cholesterol Direct 110 mg/dL (50-130) 06/05/21 15:51 HDL Cholesterol 59 mg/dL (40-59) 06/05/21 15:51 Cholesterol/HDL Ratio 2.94 % 06/05/21 15:51 TSH 0.899 mlU/mL (0.270-4.200) 06/05/21 15:51 Core Measure Documentation - Palliative Care Palliative Care/ Comfort Measures: Not Applicable - Core Measures Any of the following diagnoses?: none - VTE Discharge Requirements Deep Vein Thrombosis/Pulmonary Embolism Present on Admission: No Exam - Constitutional Vitals: Temp Pulse Resp BP Pulse Ox 99.1 F 87 18 111/69 96 06/14/21 19:43 06/14/21 21:10 06/14/21 19:43 06/14/21 21:10 06/14/21 19:43 General appearance: Present: no acute distress - Psychiatric Psychiatric: appropriate mood/affect, cooperative Plan Activity: advance as tolerated Weight Bearing Status: Weight Bear as Tolerated Diet: regular Care Plan Goals: Maintain good and stable mental health. Plan of Treatment: The patient should be compliant with medications, not to use drugs and not to drink alcohol. The patient understands that if suicidal ideas, homicidal ideas, or any endangering thoughts arise, the patient should immediately seek for emergent assistance including but not limited to crisis hot line and emergency room. Follow up with outpatient Psychiatrist and PCP within 7 - 14 days of discharge. Follow up with: PRIMARY CARE,MD [Primary Care Provider] - 7 Days Prescriptions: Melatonin [Melatonin 5MG TAB] 5 mg PO QHS PRN 30 Days #30 tablet PRN Reason: Sleep Mirtazapine [Remeron 15mg TAB] 15 mg PO QHS 30 Days #30 tablet OLANzapine [Zyprexa] 10 mg PO QHS 30 Days #30 tablet
[2021-06-15 08:03] VITALS: BP 113/83
[2021-06-15] MEDS: LISINOPRIL 10 MG TAB PO SCH (09:04)
== END 2021-06-15 12:25 | disposition home or self-care (01) | DRG 885 ==
LOC: UNDOADMIN 07:42 → 3A 07:42 → 5A 12:39
PROVIDERS: ADMIT Psychiatry & Neurology Psychiatry; ATTEND Psychiatry & Neurology Psychiatry
DX: F20.9 Schizophrenia, unspecified (principal); I10 Essential (primary) hypertension; Z79.899 Other long term (current) drug therapy
CPT/HCPCS: 36415; 80053; 80061; 82962; 83036; 84443; 85025; G0378